=== PATIENT | female | born 1955 | race Two or more races ===

== ENCOUNTER 2016-10-08 06:51 | Inpatient (IN) | payer OTHER ==
[~2016-10-08] VITALS: Ht 160 cm; Wt 86.6 kg
[~2016-10-08 06:51] MED LIST: AMLODIPINE BESY10 MG PO; MULTIVITAMIN1 EAC2 PO; SERTRALINE HCL100 MG PO; TRIAMTERENE-HC1 EACH PO; TYLENOL EXTRA500 MG PO; VITAMIN D-32000 UNI2 PO; ZETIA10 MG PO
[2016-10-08 10:04] VITALS: BP 153/69
[2016-10-08 15:00] VITALS: BP 135/65
[2016-10-08 19:32] VITALS: BP 133/66
[2016-10-08 20:16] LABS: HEMATOCRIT 35.1 % (36.0-46.0); MCH 28.7 PG (29.0-34.0); MCHC 32.5 G/DL (30.0-36.0); MCV 88.4 FL (83-99); MEAN PLAT.VOLUME 9.5 uM^3 (9.5-12.4); PLATELET COUNT 359 K/uL (156-360); RBC DIS.WIDTH-CV 14.3 % (11.8-14.6); RBC DIS.WIDTH-SD 46.4 % (39-53); RED BLOOD COUNT 3.97 M/uL (3.80-5.20); WHITE BLOOD COUNT 14.6 K/uL (4.1-10.2)
[2016-10-08 20:39] LABS: ANION GAP 12 MEQ/L (2-14); CHLORIDE 99 MEQ/L (99-109); GFR ESTIMATE (CALCULATED) > 59 mL/min/; GLUCOSE 187 mg/dL (70-99); SAMPLE HEMOLYSIS CHECK 0; SAMPLE ICTERIC CHECK 0; SAMPLE LIPEMIA CHECK 0; SODIUM 138 MEQ/L (136-147); UREA NITROGEN (BUN) 11 mg/dL (9-23)
[2016-10-08 23:26] VITALS: BP 133/71
[2016-10-09 04:07] VITALS: BP 150/70
[2016-10-09 07:11] LABS: HEMATOCRIT 34.4 % (36.0-46.0); MCH 28.5 PG (29.0-34.0); MCV 89.1 FL (83-99); MEAN PLAT.VOLUME 9.8 uM^3 (9.5-12.4); PLATELET COUNT 375 K/uL (156-360); RBC DIS.WIDTH-CV 14.5 % (11.8-14.6); RBC DIS.WIDTH-SD 46.7 % (39-53); RED BLOOD COUNT 3.86 M/uL (3.80-5.20); WHITE BLOOD COUNT 12.9 K/uL (4.1-10.2)
[2016-10-09 07:12] VITALS: BP 130/60
[2016-10-09 07:33] LABS: ANION GAP 8 MEQ/L (2-14); CHLORIDE 97 MEQ/L (99-109); GFR ESTIMATE (CALCULATED) > 59 mL/min/; POTASSIUM 3.9 MEQ/L (3.7-5.4); SAMPLE HEMOLYSIS CHECK 0; SAMPLE ICTERIC CHECK 0; SAMPLE LIPEMIA CHECK 0; SODIUM 137 MEQ/L (136-147); UREA NITROGEN (BUN) 9 mg/dL (9-23)
[2016-10-09 07:34] LABS: GLUCOSE 99 mg/dL (70-99)
[2016-10-09 11:26] VITALS: BP 128/60
[2016-10-09 16:21] VITALS: BP 135/63
[2016-10-09 19:33] VITALS: BP 158/70
[2016-10-10 00:32] VITALS: BP 158/78
[2016-10-10 03:58] VITALS: BP 138/69
[2016-10-10 06:35] LABS: HEMATOCRIT 35.6 % (36.0-46.0); MCH 27.7 PG (29.0-34.0); MCHC 31.5 G/DL (30.0-36.0); MCV 88.1 FL (83-99); MEAN PLAT.VOLUME 9.6 uM^3 (9.5-12.4); PLATELET COUNT 384 K/uL (156-360); RBC DIS.WIDTH-CV 14.4 % (11.8-14.6); RBC DIS.WIDTH-SD 46.4 % (39-53); RED BLOOD COUNT 4.04 M/uL (3.80-5.20); WHITE BLOOD COUNT 14.5 K/uL (4.1-10.2)
[2016-10-10 06:56] VITALS: BP 133/67
[2016-10-10 08:11] LABS: ANION GAP 8 MEQ/L (2-14); CHLORIDE 94 MEQ/L (99-109); GFR ESTIMATE (CALCULATED) > 59 mL/min/; GLUCOSE 120 mg/dL (70-99); POTASSIUM 3.2 MEQ/L (3.7-5.4); SAMPLE HEMOLYSIS CHECK 0; SAMPLE ICTERIC CHECK 0; SAMPLE LIPEMIA CHECK 0; SODIUM 135 MEQ/L (136-147); UREA NITROGEN (BUN) 9 mg/dL (9-23)
[2016-10-10] MEDS ORDERED: TRAMADOL HCL50 MG PO (09:17)
== END 2016-10-10 10:20 | disposition home or self-care (01) | DRG 743 ==
LOC: 2SOUTH 06:51 → 2EAST 14:53 → 2SOUTH 15:49 → 2EAST 10-10 10:20
PROVIDERS: Obstetrics & Gynecology Gynecologic Oncology
DX: D27.1 Benign neoplasm of left ovary (principal); K63.89 Other specified diseases of intestine; K66.8 Other specified disorders of peritoneum; Z88.0 Allergy status to penicillin; Z88.1 Allergy status to other antibiotic agents; Z88.3 Allergy status to other anti-infective agents; E78.2 Mixed hyperlipidemia; I10 Essential (primary) hypertension; E55.9 Vitamin D deficiency, unspecified; G25.81 Restless legs syndrome; E66.9 Obesity, unspecified; M54.40 Lumbago with sciatica, unspecified side; Z68.34 Body mass index [BMI] 34.0-34.9, adult; Z87.891 Personal history of nicotine dependence
CPT/HCPCS: 36415; 80048; 85027; 86850; 86900; 86901; 86920; 88305; 88307; J0330; J1100; J1170; J1580; J1650; J2270; J2405; J2710; J2765; J3010; J7050; S0030